=== PATIENT | female | born 1980 | race Caucasian/White ===

== ENCOUNTER 2018-10-22 13:31 | Emergency (ER) | payer MEDICAID ==
[~2018-10-22] VITALS: Ht 175.3 cm; Wt 64.9 kg
[2018-10-22 13:33] VITALS: BP 132/84
--- NOTE | 2018-10-22 14:00 | NUR ---
tom mccracken pa in RAP to [place] pt, pt is resting quietly on chair, speaking full sentences, no resp distress, plan to dc home
[2018-10-22] MEDS ORDERED: AZIT500T PO (14:02)
[2018-10-22] MEDS ORDERED: BENZ-16 PO (14:02)
== END 2018-10-22 14:08 | disposition home or self-care (01) ==
LOC: ER 13:31
DX: J20.9 Acute bronchitis, unspecified (principal); F17.200 Nicotine dependence, unspecified, uncomplicated; J45.909 Unspecified asthma, uncomplicated; Z88.1 Allergy status to other antibiotic agents; Z88.6 Allergy status to analgesic agent; Z79.899 Other long term (current) drug therapy
CPT/HCPCS: 99283

== ENCOUNTER 2019-05-13 18:11 | Emergency (ER) | payer MEDICAID ==
[~2019-05-13] VITALS: Ht 175.3 cm; Wt 63.6 kg
[2019-05-13 18:26] VITALS: BP 137/81
== END 2019-05-13 21:07 | disposition home or self-care (01) ==
LOC: ER 18:12
DX: H61.22 Impacted cerumen, left ear (principal); K02.9 Dental caries, unspecified; J45.909 Unspecified asthma, uncomplicated; Z88.1 Allergy status to other antibiotic agents; Z88.6 Allergy status to analgesic agent
CPT/HCPCS: 69209; 99282

== ENCOUNTER 2019-08-07 08:18 | Emergency (ER) | payer MEDICAID ==
[~2019-08-07] VITALS: Ht 175.3 cm; Wt 69.6 kg
[2019-08-07 08:58] LABS: CLARITY,URINE SLIGHTLY CLOUDY (Clear); COLOR,URINE YELLOW (Yellow); GLUCOSE, URINE NEGATIVE (Neg); KETONES,URINE NEGATIVE (Neg); LEUKOCYTE ESTERASE ,URINE NEGATIVE (Neg); NITRITES, URINE POSITIVE (Neg); OCCULT BLOOD,URINE SMALL (Neg); PH,URINE 6.5 (4.8-8.0); PROTEIN,URINE NEGATIVE (Neg); URINE HCG NEGATIVE (NEG); UROBILINOGEN,URINE 0.2 E.U/dL (0.2-1.0)
[2019-08-07 09:03] LABS: UA COLLECTION TYPE CLN CATCH MIDSTREAM
[2019-08-07 09:06] LABS: BACTERIA,URINE 4+ /HPF (Neg); MUCUS STRANDS NONE SEEN /LPF (Neg); RENAL CELLS, URINE FEW /HPF; SQUAMOUS EPITHELIAL CELL,UR MODERATE /LPF (FEW); WBC CLUMPS,URINE FEW /HPF (NEGATIVE)
[2019-08-07] MEDS ORDERED: acetaminophen 325mg tablet PO ONE (09:10)
[2019-08-07 09:14] LABS: BASOPHILS # (AUTO) 0.1 X10'3 (0-0.2); BASOPHILS % (AUTO) 0.7 % (0-1); EOSINOPHILS # (AUTO) 0.4 X10'3 (0-0.9); EOSINOPHILS % (AUTO) 3.8 % (0-6); HEMATOCRIT 45.5 % (35.0-45.0); HEMOGLOBIN 15.5 g/dl (12.0-16.0); LYMPHOCYTES # (AUTO) 1.4 X10'3 (1.1-4.8); LYMPHOCYTES % (AUTO) 12.1 % (21-51); MEAN CORPUSCULAR HEMOGLOBIN 32.6 PG (27.0-31.0); MEAN PLATELET VOLUME 7.4 FL (7.4-10.4); MONOCYTES # (AUTO) 1.3 X10'3 (0-0.9); MONOCYTES % (AUTO) 11.3 % (2-12); NEUTROPHILS # (AUTO) 8.2 X10'3 (1.8-7.7); NEUTROPHILS % (AUTO) 72.1 % (42-75); PLATELET COUNT 293 X10'3 (140-440); RED BLOOD COUNT 4.74 X10'6 (4.20-5.60); RED CELL DISTRIBUTION WIDTH 12.6 % (11.5-14.5); WHITE BLOOD COUNT 11.3 X10'3 (4.5-11.0)
[2019-08-07] MEDS ORDERED: phenazopyridine 100mg tablet PO ONE (09:15)
[2019-08-07] MEDS ORDERED: cephalexin 250mg capsule PO ONE (09:15)
[2019-08-07 09:24] LABS: ALANINE AMINOTRANSFERASE 27 U/L (12-78); ALBUMIN 4.1 G/DL (3.4-5.0); ALBUMIN/GLOBULIN RATIO 1.1 (1.1-1.5); ALKALINE PHOSPHATASE 69 IU/L (46-116); ANION GAP 8 (8-16); ASPARTATE AMINO TRANSFERASE 17 U/L (10-37); BILIRUBIN,TOTAL 0.6 MG/DL (0.1-1.0); BLOOD UREA NITROGEN 12 MG/DL (7-18); CALCIUM 9.3 MG/DL (8.5-10.1); CHLORIDE 104 MMOL/L (99-107); CREATININE 0.86 MG/DL (0.40-0.90); GLUCOSE 91 MG/DL (70-104); POTASSIUM 4.8 MMOL/L (3.5-5.1); SODIUM 138 MMOL/L (135-145); TOTAL CARBON DIOXIDE 26.1 MMOL/L (24-32); eGFR 74 ML/MIN
[2019-08-07] MEDS ORDERED: CEPH250T PO (09:56)
[2019-08-07 10:04] VITALS: BP 107/69
== END 2019-08-07 10:05 | disposition home or self-care (01) ==
LOC: ER 08:18
DX: N39.0 Urinary tract infection, site not specified (principal); J45.909 Unspecified asthma, uncomplicated; Z88.1 Allergy status to other antibiotic agents; Z88.6 Allergy status to analgesic agent; Z79.899 Other long term (current) drug therapy
CPT/HCPCS: 36415; 80053; 81001; 81025; 85025; 85610; 87077; 87088; 87186; 99284